=== PATIENT | female | born 1985 | race Caucasian/White ===

== ENCOUNTER → 2016-11-18 | Outpatient (CLI) | payer SELFPAY ==
--- NOTE | 2016-11-18 17:13 | US ---
EXAMINATION TYPE: US transvaginal DATE OF EXAM: 11/18/2016 COMPARISON: NONE CLINICAL HISTORY: N92.0 MENORRHAGIA. Patient stated has heavy and painful menses; family history of e ndometriosis TECHNIQUE: Transvaginal (TV) Date of LMP: first week october EXAM MEASUREMENTS: Uterus: 9.8 x 5.8 x 3.9 cm Endometrial Stripe: 0.8 cm Right Ovary: 3.7 x 3.0 x 3.2 cm Left Ovary: 3.1 x 1.9 x 2.1 cm 1. Uterus: Anteverted; couple of Nabothian cysts with larger = 0.4 x 0.3 x 0.4cm 2. Endometrium: thickness is wnl for day 20 LMP 3. Right Ovary: large complex cyst (possible hemorrhagic) 2.4 x 2.5 x 2.6cm 4. Left Ovary: small follicles Spectral, color and waveform Doppler imaging shows good arterial and venous flow within the ovaries ; there is no evidence for ovarian torsion. 5. Bilateral Adnexa: wnl 6. Posterior cul-de-sac: wnl IMPRESSION: No evidence of ovarian torsion. 2.5 cm complex right ovarian cyst. Normal endometrium.
== END | disposition home or self-care (01) ==
LOC: RADUSWWP 16:09
PROVIDERS: ATTEND Internal Medicine
DX: N83.201 Unspecified ovarian cyst, right side (principal)
CPT/HCPCS: 76830